=== PATIENT | male | born 1990 | race Caucasian/White ===

== ENCOUNTER 2018-03-24 17:56 | Emergency (ER) | payer SELFPAY ==
[2018-03-24] MEDS ORDERED: LORazepam 2 MG/ML VIAL ONE (18:07)
[2018-03-24] MEDS ORDERED: NA CHLORIDE 0.9% 2,000 ML ONE (18:07)
[2018-03-24 18:33] LABS: Absolute Lymphocytes (CBC) 1.4 K/uL (0.7-4.9); Absolute Monocytes 0.7 K/uL (0.1-1.3); Absolute Neutrophil 10.9 K/uL (1.8-8.0); Basophils % 0.3 % (0-1.3); Eosinophils % 0.8 % (0-4.4); Hematocrit 46.4 % (39.6-49.0); MCH 33.3 pg (27.0-35.0); MCV 97.5 fL (80-100); Monocytes % 5.2 % (3.3-12.3); RBC Red Blood Cell Count 4.76 M/uL (4.33-5.43)
[2018-03-24 18:42] LABS: Protime INR 0.99
[2018-03-24 18:48] LABS: Bicarbonate 23 mEq/L (21-31); Glucose Level 223 mg/dL (65-120); Potassium 3.5 mEq/L (3.6-5.0); Sodium Level 140 mEq/L (135-145)
[2018-03-24 18:54] LABS: ALT/SGPT 34 IU/L (10-60); AST/SGOT 32 IU/L (10-42); Albumin 4.9 g/dL (3.2-5.5); Alkaline Phosphatase 60 IU/L (42-121); BUN Blood Urea Nitrogen 15 mg/dL (6-20); Bilirubin Direct 0.1 mg/dL (0-0.2); Bilirubin Total 0.4 mg/dL (0.3-1.2); Creatine Phosphokinase 88 IU/L (22-269); Magnesium 1.6 mg/dL (1.8-2.5); Protein, Total 8.4 g/dL (6.0-8.3)
[2018-03-24 18:58] LABS: Alcohol Serum/Plasma < 10 mg/dl; Salicylates Level < 4.0 mg/dl (<30)
--- NOTE | 2018-03-24 19:19 | RAD REPORT ---
EXAM DESCRIPTION: CT - Head Brain Wo Cont - 03/24/2018 6:58 pm CLINICAL HISTORY: Headache COMPARISON: None. TECHNIQUE: Computed axial tomography of the head was obtained. IV contrast was not requested. All CT scans are performed using dose optimization technique as appropriate and may include automated exposure control or mA/KV adjustment according to patient size. FINDINGS: An intracranial bleed is not seen . The ventricles are normal in caliber. No extra-axial fluid collection is noted. Mild to moderate opacification ethmoid is seen. Mastoids are clear. IMPRESSION: No acute intracranial abnormality is seen. If patient's symptoms persist MRI of the bra in would be recommended.
--- NOTE | 2018-03-24 19:52 | RAD REPORT ---
EXAM DESCRIPTION: Ned Single View03/24/2018 6:54 pm CLINICAL HISTORY: cough COMPARISON: none FINDINGS: The lungs appear clear of acute infiltrate. The heart is normal size IMPRESSION: No acute abnormalities displayed
[2018-03-24 20:12] LABS: Urine Blood TRACE (NEG); Urine Glucose TRACE (NEG); Urine Protein 2+ (NEG); Urine Specific Gravity 1.025 (1.005-1.030)
[2018-03-24 20:30] LABS: Barbiturates NEGATIVE; Benzodiazepines NEGATIVE; Cocaine NEGATIVE; METHAMPHETAM NEGATIVE; Opiates NEGATIVE; Phencyclidine NEGATIVE; THC Cannibis NEGATIVE
[2018-03-24] MEDS ORDERED: MAGNESIUM OXIDE 400 MG TAB ONE (20:41)
--- NOTE | 2018-03-24 22:13 | ER ---
Nurse's Notes [facility] Name: Lj Ellsworth Age: 27 yrs Sex: Male : 1990 Arrival Date: 03/24/2018 Time: 17:58 Bed 3 Private MD: Diagnosis: Altered mental status, unspecified;Poisoning by and adverse effect of lysergide [LSD] Presentation: 03/24 17:59 Presenting complaint: EMS states: PD called to scene due to altered mental status. Pt jl7 was wondering around the [place] apartments talking incoherently. Pt is diaphoretic, tachycardic, BP is 120/60. Transition of care: patient was not received from another setting of care. Onset of symptoms was March 24, 2018. Initial Sepsis Screen: Does the patient meet any 2 criteria? No. Patient's initial sepsis screen is negative. Does the patient have a suspected source of infection? No. Patient's initial sepsis screen is negative. Care prior to arrival: None. 17:59 Method Of Arrival: EMS: [facility] 17:59 Acuity: RAMESH 2 jl7 Historical: - Allergies: 19:12 No Known Allergies; bp - Home Meds: 19:12 Unable to obtain [Active]; bp - PMHx: 19:12 Unable to obtain; bp - Immunization history:: Adult Immunizations up to date. - Social history:: Smoking status: unknown. Screenin:26 Abuse screen: Denies threats or abuse. Nutritional screening: No deficits noted. ae1 Tuberculosis screening: No symptoms or risk factors identified. Fall Risk None identified. Assessment: 18:15 General: Appears unkempt, Behavior is cooperative, agitated, restless. Pain: Denies ae1 pain. Neuro: Level of Consciousness is awake, alert, obeys commands, Oriented to person. Cardiovascular: Respiratory: Airway is patent Respiratory effort is even, unlabored, shallow, Respiratory pattern is regular, symmetrical. GI: Abdomen is flat, non-distended. : Patient is saturated in urine. EENT: Eyes Pupils are unequal, left pupil is dilated to 4mm and right pupil is dilated to 3 mm. Derm: Skin is diaphoretic, Skin is flushed, Skin temperature is hot. Musculoskeletal: No signs and/or symptoms reported regarding the musculoskeletal system. no visible signs of injury. 18:45 Reassessment: Patient appears less confused, and is able to communicate more clearly. ae1 Patient states he ingested 3 "tabs" of "acid" at about noon today. 19:00 Reassessment: RECD REPORT FROM HARMEET GRAYSON. 27YO WM P/W AMS S/P LSD INGESTION. BROUGHT BY bp PD FOR "ACTING STRANGE AT HIS APARTMENT COMPLEX". UOP PENDING. PT CURRENTLY AO4, CALM AND COOPERATIVE. NO RESTRAINTS IN PLACE. 21:00 Reassessment: REPEAT TROP DRAWN/SENT, RESULTS PENDING FOR DISPO. bp 22:26 Reassessment: PT D/C HOME AMBULATORY WITH FAMILY, DX WITH POLYSUBSTANCE ABUSE. bp Vital Signs: 17:59 BP 141 / 78; Pulse 113; Resp 20 S; Temp 100.6(A); Pulse Ox 98% on R/A; jl7 19:32 BP 115 / 68; Pulse 81; Resp 17; Temp 98(O); Pulse Ox 97% on R/A; Weight 83.91 kg (R); ae1 21:24 BP 109 / 75; Pulse 77; Resp 17; Pulse Ox 98% on R/A; mw2 22:08 BP 113 / 64; Pulse 74; Resp 16; Temp 98.3(O); Pulse Ox 100% on R/A; Pain 0/10; cc ED Course: 17:58 Patient arrived in ED. jl7 17:59 Arm band placed on right wrist. jl7 18:04 Silviano Greene MD is Attending Physician. [facility] 18:12 Wood Herrera, RENUKA is Primary Nurse. ae1 18:14 Triage completed. jl7 18:15 Initial lab(s) drawn, by pa, sent to lab. Inserted saline lock: 20 gauge in right jl7 antecubital area, using aseptic technique. Blood collected. 18:19 Bed in low position. ae1 18:34 Attending Physician role handed off by Silviano Greene MD tw4 18:34 Wilber Rao MD is Attending Physician. tw4 18:47 X-ray completed. Portable x-ray completed in exam room. Patient tolerated procedure kp1 well. 18:[address] via stretcher. 18:54 XRAY Chest (1 view) In Process Unspecified. EDMS 18:58 CT completed. Patient tolerated procedure well. Patient moved back from CT. 18:58 CT Head Brain wo Cont In Process Unspecified. EDAL 22:09 EKG done, by ED staff, reviewed by Wilber Rao MD. cc 22:26 No provider procedures requiring assistance completed. IV discontinued, intact, bp bleeding controlled, No redness/swelling at site. Pressure dressing applied. Administered Medications: 18:06 Drug: NS 0.9% 1000 ml Route: IV; Rate: 1 bolus; Site: right antecubital; ae1 22:28 Follow up: IV Status: Completed infusion; IV Intake: 1000ml bp 18:06 Drug: Ativan 1 mg Route: IVP; Site: right antecubital; ae1 19:57 Follow up: Response: Marked relief of symptoms bp 19:32 Drug: NS 0.9% 1000 ml Route: IV; Rate: 1 bolus; Site: right antecubital; ae1 22:27 Follow up: IV Status: Completed infusion; IV Intake: 1000ml bp 19:57 Not Given (Physician Discretion): Ativan 1 mg IVP once bp 20:43 Drug: Magnesium 400 mg Route: PO; bp 20:43 Follow up: Response: No adverse reaction bp Intake: 22:27 IV: 1000ml; Total: 1000ml. bp 22:28 IV: 1000ml; Total: 2000ml. bp Outcome: 22:12 Discharge ordered by . tw4 22:27 Discharged to home ambulatory, with family. bp 22:27 Condition: stable 22:27 Discharge instructions given to patient, Instructed on discharge instructions, follow up and referral plans. Demonstrated understanding of instructions, follow-up care. 22:28 Patient left the ED. bp Signatures: Dispatcher [employer] EDAL Silviano Greene MD MD cha Hagler, Ervin Vi Lopez Wood Herrera RN RN ae1 Harmeet Cameoj RN RN jl7 Eugenie Montes De Oca kp1 Sarmad Prado RN RN Wilber Shelton MD MD tw4 Patricia Bradshaw 2
--- NOTE | 2018-03-24 22:13 | EDPHYS ---
Physician Documentation [facility] Name: Lj Ellsworth Age: 27 yrs Sex: Male : 1990 Arrival Date: 03/24/2018 Time: 17:58 Bed 3 Private MD: ED Physician Wilber Rao HPI: 03/24 21:38 This 27 yrs old Male presents to ER via EMS with complaints of altered mental tw4 status. 21:38 The patient presents with agitation, confusion. Onset: The symptoms/episode tw4 began/occurred just prior to arrival. Possible causes: drug use, LSD. Associated signs and symptoms: The patient has no apparent associated signs or symptoms. Current symptoms: In the emergency department the patient's symptoms have resolved. Patient's baseline: Neuro: alert and fully oriented, Motor: no deficits, Ambulation: walks without assistance, Speech: normal. The patient has not experienced similar symptoms in the past. transported by EMS after pt was confused in front yard. Historical: - Allergies: 19:12 No Known Allergies; bp - Home Meds: 19:12 Unable to obtain [Active]; bp - PMHx: 19:12 Unable to obtain; bp - Immunization history:: Adult Immunizations up to date. - Social history:: Smoking status: unknown. ROS: 21:38 Constitutional: Negative for fever, chills, and weight loss, Cardiovascular: Negative tw4 for chest pain, palpitations, and edema, Respiratory: Negative for shortness of breath, cough, wheezing, and pleuritic chest pain, Abdomen/GI: Negative for abdominal pain, nausea, vomiting, diarrhea, and constipation, Back: Negative for injury and pain, MS/Extremity: Negative for injury and deformity, Skin: Negative for injury, rash, and discoloration. 21:38 Neuro: Positive for altered mental status, Negative for gait disturbance, headache, hearing loss, loss of consciousness. Exam: 21:38 Constitutional: This is a well developed, well nourished patient who is awake, alert, tw4 and in no acute distress. Head/Face: Normocephalic, atraumatic. Chest/axilla: Normal chest wall appearance and motion. Nontender with no deformity. No lesions are appreciated. Cardiovascular: Regular rate and rhythm with a normal S1 and S2. No gallops, murmurs, or rubs. Normal PMI, no JVD. No pulse deficits. Respiratory: Lungs have equal breath sounds bilaterally, clear to auscultation and percussion. No rales, rhonchi or wheezes noted. No increased work of breathing, no retractions or nasal flaring. Abdomen/GI: Soft, non-tender, with normal bowel sounds. No distension or tympany. No guarding or rebound. No evidence of tenderness throughout. Back: No spinal tenderness. No costovertebral tenderness. Full range of motion. MS/ Extremity: Pulses equal, no cyanosis. Neurovascular intact. Full, normal range of motion. Neuro: Awake and alert, GCS 15, oriented to person, place, time, and situation. Cranial nerves II-XII grossly intact. Motor strength 5/5 in all extremities. Sensory grossly intact. Cerebellar exam normal. Normal gait. Vital Signs: 17:59 BP 141 / 78; Pulse 113; Resp 20 S; Temp 100.6(A); Pulse Ox 98% on R/A; jl7 19:32 BP 115 / 68; Pulse 81; Resp 17; Temp 98(O); Pulse Ox 97% on R/A; Weight 83.91 kg (R); ae1 21:24 BP 109 / 75; Pulse 77; Resp 17; Pulse Ox 98% on R/A; mw2 22:08 BP 113 / 64; Pulse 74; Resp 16; Temp 98.3(O); Pulse Ox 100% on R/A; Pain 0/10; cc MDM: 18:04 Patient medically screened. carlos 03/25 00:33 Differential Diagnosis: CVA, electrolyte abnormality, volume depletion. Data reviewed: tw4 vital signs, nurses notes. Data interpreted: Pulse oximetry: Interpretation: normal. Counseling: I had a detailed discussion with the patient and/or guardian regarding: the historical points, exam findings, and any diagnostic results supporting the discharge/admit diagnosis, lab results. Special discussion: I discussed with the patient/guardian in detail that at this point there is no indication for admission to the hospital. It is understood, however, that if the symptoms persist or worsen the patient needs to return immediately for re-evaluation. ED course: pt's initial troponin was 0.1.... repeat after initial draw was 0.13. Pt has no CP, SOB or additional symptoms during stay in the ED and prior to arrival. Will have pt followup with PCP. Pt also counseled to seek help with drug use. 03/24 18:06 Order name: Basic Metabolic Panel; Complete Time: 20:11 [facility] 03/24 18:06 Order name: BNP; Complete Time: 20:11 [facility] 03/24 18:06 Order name: CBC with Diff; Complete Time: 20:11 [facility] 03/24 18:06 Order name: Ckmb; Complete Time: 20:11 [facility] 03/24 18:06 Order name: CPK; Complete Time: 20: [facility] 03/24 18:06 Order name: LFT's; Complete Time: 20: [facility] 03/24 18:06 Order name: Magnesium; Complete Time: 20: [facility] 03/24 18:06 Order name: PT-INR; Complete Time: 20: [facility] 03/24 18:06 Order name: Ptt, Activated; Complete Time: 20: [facility] 03/24 18:06 Order name: Troponin (emerg Dept Use Only); Complete Time: 20: [facility] 03/24 18:06 Order name: Acetaminophen; Complete Time: 20: [facility] 03/24 18:06 Order name: ETOH Level; Complete Time: 20: [facility] 03/24 18:06 Order name: Salicylate; Complete Time: 20: [facility] 03/24 18:06 Order name: Urine Drug Screen; Complete Time: 21:33 [facility] 03/24 18:06 Order name: XRAY Chest (1 view); Complete Time: 20:11 [facility] 03/24 18:06 Order name: EKG; Complete Time: 18:20 [facility] 03/24 18:06 Order name: Cardiac monitoring; Complete Time: 20:08 [facility] 03/24 18:06 Order name: EKG - Nurse/Tech; Complete Time: 19:58 [facility] 03/24 18:06 Order name: IV Saline Lock; Complete Time: 18:14 [facility] 03/24 18:06 Order name: Labs collected and sent; Complete Time: 19:02 [facility] 03/24 18:06 Order name: O2 Per Protocol; Complete Time: 18:14 [facility] 03/24 18:06 Order name: O2 Sat Monitoring; Complete Time: 18:14 [facility] 03/24 18:06 Order name: CT Head Brain wo Cont; Complete Time: 20:11 [facility] 03/24 20:10 Order name: Urine Dipstick--Ancillary (enter results); Complete Time: 20:39 cc 03/24 20:40 Order name: Troponin I; Complete Time: 21:58 tw4 03/24 18:06 Order name: Urine Dipstick-Ancillary (obtain specimen); Complete Time: 20:08 carlos Administered Medications: 03/24 18:06 Drug: NS 0.9% 1000 ml Route: IV; Rate: 1 bolus; Site: right antecubital; ae1 22:28 Follow up: IV Status: Completed infusion; IV Intake: 1000ml bp 18:06 Drug: Ativan 1 mg Route: IVP; Site: right antecubital; ae1 19:57 Follow up: Response: Marked relief of symptoms bp 19:32 Drug: NS 0.9% 1000 ml Route: IV; Rate: 1 bolus; Site: right antecubital; ae1 22:27 Follow up: IV Status: Completed infusion; IV Intake: 1000ml bp 19:57 Not Given (Physician Discretion): Ativan 1 mg IVP once bp 20:43 Drug: Magnesium 400 mg Route: PO; bp 20:43 Follow up: Response: No adverse reaction bp Disposition: 03/24/18 22:12 Discharged to Home. Impression: Altered mental status, unspecified, Poisoning by and adverse effect of lysergide [LSD]. - Condition is Stable. - Discharge Instructions: Confusion, Polysubstance Abuse, Altered Mental Status. - Medication Reconciliation Form, Thank You Letter, Antibiotic Education, Prescription Opioid Use form. - Follow up: Private Physician; When: As needed; Reason: Recheck today's complaints, Continuance of care, Re-evaluation by your physician. - Problem is new. - Symptoms have improved. Signatures: Dispatcher [employer] Silviano Epps MD MD cha Elliott, Andrea, RN RN ae1 Sarmad Prado RN RN bp Wilber Rao MD MD tw4 Corrections: (The following items were deleted from the chart) 22: 22:12 03/24/2018 22:12 Discharged to Home. Impression: Altered mental status, bp unspecified; Poisoning by and adverse effect of lysergide [LSD]. Condition is Stable. Forms are Medication Reconciliation Form, Thank You Letter, Antibiotic Education, Prescription Opioid Use. Follow up: Private Physician; When: As needed; Reason: Recheck today's complaints, Continuance of care, Re-evaluation by your physician. Problem is new. Symptoms have improved. tw4
--- NOTE | 2018-03-25 06:57 | EKG ---
Test Date: 2018-03-24 Test Time: 19:11:57 Perfumer: SIMON MEASUREMENT RESULTS: Intervals: Rate: 83 AK: 132 QRSD: 94 QT: 378 QTc: 444 [place]: P: 41 AK: 132 QRS: 70 T: 26 INTERPRETIVE STATEMENTS: Normal sinus rhythm Normal ECG No previous ECG available for comparison Electronically Signed On 03-25-18 06:57:26 CDT by Doe Thacker
--- NOTE | 2018-03-27 09:17 | EKG ---
Test Date: 2018-03-24 Test Time: 22:01:25 Cosmetician: EDMAR MEASUREMENT RESULTS: Intervals: Rate: 70 [place]: 120 QRSD: 102 QT: 392 QTc: 423 [place]: P: 36 [place]: 120 QRS: 65 T: 20 INTERPRETIVE STATEMENTS: Normal sinus rhythm Normal ECG Compared to ECG 03/24/2018 19:11:57 No significant changes Electronically Signed On 03-27-18 09:16:36 CDT by Bunny Mar
== END 2018-03-24 22:28 | disposition home or self-care (01) ==
LOC: ER 17:56
DX: T40.8X1A Poisoning by lysergide [LSD], accidental (unintentional), initial encounter (principal)
CPT/HCPCS: 36415; 70450; 71045; 80048; 80076; 80307; 80320; 80329; 81003; 82550; 82553; 82962; 83735; 83880; 84484; 85025; 85610; 85730; 93005; 96361; 96374; 99284; J7030

== ENCOUNTER 2019-03-22 17:37 | Emergency (ER) | payer SELFPAY ==
[2019-03-22 18:43] LABS: Urine Blood NEGATIVE (NEG); Urine Glucose NEGATIVE (NEG); Urine Protein 2+ (NEG); Urine pH 6.5 (5.0-7.0)
[2019-03-22] MEDS ORDERED: KETOROLAC 30 MG/ML INJ ONE (19:27)
--- NOTE | 2019-03-22 19:41 | RAD REPORT ---
EXAM DESCRIPTION: RAD - Chest Pa And Lat (2 Views) - 03/22/2019 7:27 pm CLINICAL HISTORY: Cough;Chest pain Chest pain. COMPARISON: Chest Single View dated 03/24/2018 FINDINGS: The lungs are clear. The heart is normal in size. No displaced fractures. IMPRESSION: No acute or concerning finding suspected.
--- NOTE | 2019-03-22 19:48 | ER ---
Nurse's Notes [facility] Name: Lj Ellsworth Age: 28 yrs Sex: Male : 1990 Arrival Date: 03/22/2019 Time: 17:38 Bed 13 Private MD: Diagnosis: Chest Wall Pain Presentation: 03/22 17:45 Presenting complaint: Patient states: i think i pulled a muscle on my chest coz when i ss move my arm and cough it hurts; i do have allergies today;. Transition of care: patient was not received from another setting of care. Onset of symptoms was March 22, 2019. Risk Assessment: Do you want to hurt yourself or someone else? Patient reports no desire to harm self or others. Initial Sepsis Screen: Does the patient meet any 2 criteria? No. Patient's initial sepsis screen is negative. Does the patient have a suspected source of infection? No. Patient's initial sepsis screen is negative. Care prior to arrival: None. 17:45 Method Of Arrival: Ambulatory ss 17:45 Acuity: RAMESH 3 ss Historical: - Allergies: 17:46 No Known Allergies; ss - PMHx: 17:46 None; ss - PSHx: 17:46 nosal surgery; testis; ss - Immunization history:: Adult Immunizations up to date. - Social history:: Smoking status: Patient uses tobacco products, smokes one-half pack cigarettes per day. - Ebola Screening: : Patient negative for fever greater than or equal to 101.5 degrees Fahrenheit, and additional compatible Ebola Virus Disease symptoms. Screenin:05 Abuse screen: Denies threats or abuse. Nutritional screening: No deficits noted. rb1 Tuberculosis screening: No symptoms or risk factors identified. Fall Risk None identified. Assessment: 18:05 General: Appears in no apparent distress. comfortable, Behavior is calm, cooperative, rb1 Denies fever. Pain: Complains of pain in left chest muscle Pain does not radiate. Pain currently is 8 out of 10 on a pain scale. Pain began Tuesday. Pt. reports picking up his friend while wrestling and body slamming him and he thinks he pulled his muscle. Neuro: Level of Consciousness is awake, alert, obeys commands, Oriented to person, place, time, situation. Cardiovascular: Capillary refill < 3 seconds is brisk in bilateral fingers. Respiratory: Airway is patent Respiratory effort is even, unlabored, Respiratory pattern is regular, symmetrical. GI: Reports nausea. : No signs and/or symptoms were reported regarding the genitourinary system. Derm: Skin is dry, Skin is normal, Skin temperature is warm. 19:17 General: Appears in no apparent distress. comfortable, Behavior is calm, cooperative. ak1 Pain: Complains of pain in chest. Neuro: No deficits noted. Cardiovascular: No deficits noted. Respiratory: No deficits noted. GI: No signs and/or symptoms were reported involving the gastrointestinal system. : No signs and/or symptoms were reported regarding the genitourinary system. EENT: No signs and/or symptoms were reported regarding the EENT system. Derm: No signs and/or symptoms reported regarding the dermatologic system. Musculoskeletal: Reports pain in chest after heavy lifting. Vital Signs: 17:46 BP 145 / 75; Pulse 97; Resp 18; Temp 98.2(TE); Pulse Ox 98% on R/A; Weight 85.73 kg; ss Height 6 ft. 0 in. (182.88 cm); Pain 8/10; 19:18 BP 130 / 80; Pulse 86; Resp 17; Pulse Ox 97% on R/A; ak1 20:14 BP 121 / 81; Pulse 88; Resp 18; Temp 98.2; Pulse Ox 97% on R/A; Pain 2/10; ak1 17:46 Body Mass Index 25.63 (85.73 kg, 182.88 cm) ED Course: 17:38 Patient arrived in ED. as 17:46 Triage completed. ss 17:48 Arm band placed on right wrist. ss 18:05 Patient has correct armband on for positive identification. Placed in gown. Bed in low rb1 position. Call light in reach. Side rails up X 1. bunch breaker machine operator on. Pulse ox on. NIBP on. 18:05 Patient maintains SpO2 saturation greater than 95% on room air. rb1 18:09 Bushra Mooney RN is Primary Nurse. rb1 18:26 Florin Cota PA is PHCP. jr8 18:26 Josiah Mcknight MD is Attending Physician. jr8 18:31 Urine Dipstick--Ancillary (enter results) Sent. kj1 19:00 Report given to RENUKA Hsu. rb1 19:19 No provider procedures requiring assistance completed. ak1 19:25 X-ray completed. Patient tolerated procedure well. Patient moved back from radiology. 19:26 XRAY Chest Pa And Lat (2 Views) In Process Unspecified. EDMS 19:35 Primary Nurse role handed off by Bushra Mooney, RN ak1 19:35 Aracelis Anderson, RN is Primary Nurse. ak1 20:13 Patient did not have IV access during this emergency room visit. ak1 Administered Medications: 19:17 Drug: TORadol - Ketorolac 15 mg Route: IM; Site: left deltoid; ak1 19:45 Follow up: Response: No adverse reaction ak1 20:14 Follow up: Response: No adverse reaction ak1 Outcome: 19:47 Discharge ordered by . jr8 20:13 Discharged to home ambulatory, with family. ak1 20:13 Condition: good 20:13 Discharge instructions given to patient, Instructed on discharge instructions, follow up and referral plans. no drinking with medication, no driving heavy equipment, medication usage, Demonstrated understanding of instructions, follow-up care, medications, Prescriptions given X 1. 20:15 Patient left the ED. ak1 Signatures: Dispatcher [employer] EDSD Keisha Ferrell Shelby, RN RN Florin Cota PA PA jr8 Krenek, Amber, RENUKA RN ak1 Adriana Brown Bushra Mooney, RN RN rb1 Ciera Heredia
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
--- NOTE | 2019-03-23 14:44 | EKG ---
Test Date: 2019-03-22 Test Time: 18:09:19 Industrial Relations Specialist: MING MEASUREMENT RESULTS: Intervals: Rate: 94 [place]: 120 QRSD: 86 QT: 334 QTc: 417 [place]: P: 43 [place]: 120 QRS: 54 T: 29 INTERPRETIVE STATEMENTS: Normal sinus rhythm Normal ECG Compared to ECG 03/24/2018 22:01:25 No significant changes Electronically Signed On 03-23-19 14:41:07 CDT by Doe Thacker
== END 2019-03-22 20:15 | disposition home or self-care (01) ==
LOC: ER 17:37
DX: R07.89 Other chest pain (principal); R05 Cough; F17.210 Nicotine dependence, cigarettes, uncomplicated
CPT/HCPCS: 71046; 81003; 93005; 96372; 99285

== ENCOUNTER 2021-01-25 17:16 | Emergency (ER) | payer OTHER ==
--- NOTE | 2021-01-25 18:30 | RAD REPORT ---
EXAM DESCRIPTION: CT - CTHCSPWOC - 01/25/2021 5:55 pm CLINICAL HISTORY: TRAUMA, fall from 10 foot height COMPARISON: No comparisons TECHNIQUE: Axial 5 mm thick images of the head were obtained. Axial 2 mm thick images of the cervic al spine were obtained with sagittal and coronal reconstruction images generated and reviewed. All CT scans are performed using dose optimization technique as appropriate and may include automated exposure control or mA/KV adjustment according to patient size. FINDINGS: No intracranial hemorrhage, mass, edema or acute intracranial finding. Ventricles are norm al No extra-axial fluid collections. Mastoid air cells are clear. Facial bones, orbits and sinuses ar e separately detailed. Cervical body height and alignment are normal. No disk space narrowing. No fracture or acute bony abn ormality. Central canal detail is inherently limited. No paraspinal mass or hematoma. IMPRESSION: No hemorrhage, edema or acute intracranial finding. Facial bones, orbits and sinuses are separately detailed. Negative CT cervical spine examination for acute or significant finding.
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
[2021-01-26 15:15] VITALS: BP 127/83; TEMP 97.2; O2SAT 98
== END 2021-01-25 18:58 | disposition home or self-care (01) ==
LOC: ER 17:16
DX: S00.11XA Contusion of right eyelid and periocular area, initial encounter (principal); W13.1XXA Fall from, out of or through bridge, initial encounter; Y93.89 Activity, other specified; Y92.89 Other specified places as the place of occurrence of the external cause; F17.210 Nicotine dependence, cigarettes, uncomplicated
CPT/HCPCS: 70450; 70486; 72125; 76377; 99284

== ENCOUNTER 2022-02-15 12:15 | Emergency (ER) | payer OTHER ==
[2022-02-15] MEDS ORDERED: KETOROLAC 30 MG/ML INJ ONE (13:06)
--- NOTE | 2022-02-15 13:30 | RAD REPORT ---
EXAM DESCRIPTION: RAD - Wrist Right 3 View - 02/15/2022 1:05 pm CLINICAL HISTORY: Right wrist pain status post injury FINDINGS: 5 millimeter bony density lies along the dorsal aspect of the wrist. This is suspicious fo r an acute avulsion fracture No dislocation
--- NOTE | 2022-02-15 14:10 | EDPHYS ---
Physician Documentation [facility] Name: Lj Ellsworth Age: 31 yrs Sex: Male : 1990 Arrival Date: 02/15/2022 Time: 12:18 Bed 9 Private MD: ED Physician Silverio Batista HPI: 02/15 12:25 This 31 yrs old Male presents to ER via Ambulatory with complaints of Wrist Injury. jmm 12:25 The patient or guardian reports injury, pain. Onset: The symptoms/episode jmm began/occurred acutely, just prior to arrival. Modifying factors: The symptoms are alleviated by nothing, the symptoms are aggravated by movement. Associated signs and symptoms: Pertinent positives: Swelling. This is a 31-year-old male no Rush conditions presents emerged part with complaints of right wrist pain and swelling which occurred after a fall on an outstretched hand. Patient denies other injury. Pain is worsened with range of motion of the wrist.. Historical: - Allergies: 12:41 No Known Allergies; ph - PMHx: 12:41 None; ph - Immunization history:: Adult Immunizations unknown. - Social history:: Smoking status: Patient reports the use of cigarette tobacco products, denies chronic smoking, but will smoke occasionally. ROS: 12:25 Constitutional: Negative for fever, chills, and weight loss, Cardiovascular: Negative jmm for chest pain, palpitations, and edema, Respiratory: Negative for shortness of breath, cough, wheezing, and pleuritic chest pain. 12:25 MS/extremity: Positive for injury or acute deformity, pain. 12:25 All other systems are negative. Exam: 12:25 Constitutional: This is a well developed, well nourished patient who is awake, alert, jmm and in no acute distress. Head/Face: atraumatic. Eyes: EOMI, no conjunctival erythema appreciated ENT: Moist Mucus Membranes Neck: Trachea midline, Supple Chest/axilla: Normal chest wall appearance and motion. Cardiovascular: Regular rate and rhythm. No edema appreciated Respiratory: Normal respirations, no respiratory distress appreciated Abdomen/GI: Non distended, soft Back: Normal ROM Skin: General appearance color normal 12:25 Musculoskeletal/extremity: Swelling appreciated to the right wrist, pain elicited on palpation of the distal ulnar region., Compartments are soft, full radial pulse, sensation is intact, neurovascular intact. 12:25 Skin: Appearance: Color: normal in color. 12:25 Neuro: Orientation: is normal, Mentation: is normal, Memory: is normal. 12:25 Psych: Behavior/mood is pleasant, cooperative. Vital Signs: 12:39 BP 110 / 66; Pulse 73; Resp 18; Temp 98.2; Pulse Ox 100% on R/A; Weight 83.91 kg; ph Height 6 ft. 0 in. (182.88 cm); 12:39 Body Mass Index 25.09 (83.91 kg, 182.88 cm) ph Procedures: 14:08 Splinting: Splint applied to right wrist using Sugar tong. applied by tech. Examined by bryant me, post splint application: neurovascular intact, 2+ distal pulses palpable, brisk capillary refill noted, Patient tolerated well. MDM: 12:26 Patient medically screened. [facility] 14:08 Data reviewed: vital signs, nurses notes. Counseling: I had a detailed discussion with bryant the patient and/or guardian regarding: the historical points, exam findings, and any diagnostic results supporting the discharge/admit diagnosis, radiology results, the need for outpatient follow up, to return to the emergency department if symptoms worsen or persist or if there are any questions or concerns that arise at home. ED course: Patient is neurovascular intact in the ED. Splint was placed. Patient advised to follow-up with orthopedics for further evaluation otherwise given strict return precautions. Patient understood agrees plan of care.. 02/15 12:25 Order name: Wrist Right 3 View XRAY; Complete Time: 13:32 [facility] 02/15 13:55 Order name: Sugar Tong Forearm Splint [facility] 02/15 13:55 Order name: Sling [facility] Administered Medications: 13:14 Drug: Ketorolac 30 mg Route: IM; Site: left deltoid; iw 13:30 Follow up: Response: No adverse reaction; Pain is decreased iw Disposition: 16:54 Co-signature as Attending Physician, Silverio Batista MD. rn Disposition Summary: 02/15/22 14:10 Discharge Ordered Location: Home [facility] Condition: Stable [facility] Diagnosis - Avulsion fracture of the right wrist, initial visit [facility] Followup: nichole - With: Devante Potts MD - When: 2 - 3 days - Reason: Recheck today's complaints, Continuance of care, Re-evaluation by your physician Followup: [facility] - With: Jose Carlos Castillo MD - When: 2 - 3 days - Reason: Recheck today's complaints, Continuance of care, Re-evaluation by your physician Discharge Instructions: - Discharge Summary Sheet [facility] - Wrist Fracture Treated With Immobilization [facility] Forms: - Medication Reconciliation Form [facility] - Thank You Letter [facility] - Antibiotic Education [facility] - Prescription Opioid Use [facility] Prescriptions: - Ibuprofen 800 mg Oral Tablet - take 1 tablet by ORAL route every 8 hours As needed take with food; 30 tablet; [facility] Refills: 0, Product Selection Permitted - orphenadrine citrate 100 mg Oral Tablet Sustained Release - take 1 tablet by ORAL route 2 times per day As needed; 20 tablet; Refills: 0, [facility] Product Selection Permitted Signatures: Dispatcher [employer] Neil Farmer PA PA jmm Williams, Irene, Silverio Salguero RN, MD MD rn Hall, Patricia, RN RN ph
--- NOTE | 2022-02-15 14:10 | ER ---
Nurse's Notes [facility] Name: Lj Ellsworth Age: 31 yrs Sex: Male : 1990 Arrival Date: 02/15/2022 Time: 12:18 Bed 9 Private MD: Diagnosis: Avulsion fracture of the right wrist, initial visit Presentation: 02/15 12:39 Chief complaint: Patient states: Slipped and fell last night, caught self w/ R hand, ph c/o R wrist pain. Coronavirus screen: Vaccine status: Patient reports being unvaccinated. Ebola Screen: No symptoms or risks identified at this time. Initial Sepsis Screen: Does the patient meet any 2 criteria? No. Patient's initial sepsis screen is negative. Does the patient have a suspected source of infection? No. Patient's initial sepsis screen is negative. Risk Assessment: Do you want to hurt yourself or someone else? Patient reports no desire to harm self or others. Onset of symptoms was February 15, 2022. 12:39 Method Of Arrival: Ambulatory ph 12:39 Acuity: RAMESH 4 ph Triage Assessment: 12:43 General: Appears in no apparent distress. Behavior is calm, cooperative. Pain: ph Complains of pain in right wrist. Musculoskeletal: Circulation, motion, and sensation intact. Historical: - Allergies: 12:41 No Known Allergies; ph - PMHx: 12:41 None; ph - Immunization history:: Adult Immunizations unknown. - Social history:: Smoking status: Patient reports the use of cigarette tobacco products, denies chronic smoking, but will smoke occasionally. Screenin:44 Abuse screen: Denies threats or abuse. Denies injuries from another. Nutritional ph screening: No deficits noted. Tuberculosis screening: No symptoms or risk factors identified. Fall Risk None identified. Assessment: 12:43 General: Appears in no apparent distress. comfortable, well groomed, Behavior is calm, ph cooperative, appropriate for age. Pain: Complains of pain in right wrist. Neuro: Level of Consciousness is awake, alert, obeys commands, Oriented to person, place, time, situation. Derm: Skin is intact, is healthy with good turgor, Skin is pink, warm \T\ dry. Musculoskeletal: Circulation, motion, and sensation intact. Swelling present in right wrist. Vital Signs: 12:39 BP 110 / 66; Pulse 73; Resp 18; Temp 98.2; Pulse Ox 100% on R/A; Weight 83.91 kg; ph Height 6 ft. 0 in. (182.88 cm); 12:39 Body Mass Index 25.09 (83.91 kg, 182.88 cm) ph ED Course: 12:18 Patient arrived in ED. mr 12:19 Neil Paulino PA is PHCP. jmm 12:19 Silverio Batista MD is Attending Physician. jmm 12:41 Triage completed. ph 12:41 Arm band placed on Patient placed in waiting room, Patient notified of wait time. X-ray ph ordered. 12:44 Patient has correct armband on for positive identification. Call light in reach. ph 12:53 Kristy Wright, RN is Primary Nurse. iw 13:06 Wrist Right 3 View XRAY In Process Unspecified. EDMS 14:09 Devante Potts MD is Referral Physician. jmm 14:09 Jose Carlos Castillo MD is Referral Physician. [facility] 14:27 No provider procedures requiring assistance completed. Patient did not have IV access iw during this emergency room visit. Administered Medications: 13:14 Drug: Ketorolac 30 mg Route: IM; Site: left deltoid; iw 13:30 Follow up: Response: No adverse reaction; Pain is decreased iw Outcome: 14:10 Discharge ordered by . jmm 14:27 Discharged to home ambulatory. iw 14:27 Condition: good 14:27 Discharge instructions given to patient, Instructed on discharge instructions, follow iw up and referral plans. medication usage, Demonstrated understanding of instructions, follow-up care, medications, Prescriptions given X 2. 14:28 Patient left the ED. iw Signatures: Dispatcher [employer] EDOR Neil Paulino PA PA Maame Marte mr Kristy Wright, RN RN iw Alicia Jeffries RN RN ph
[2022-02-15 15:04] VITALS: BP 110/66; TEMP 98.2; O2SAT 100
== END 2022-02-15 14:28 | disposition home or self-care (01) ==
LOC: ER 12:15
PROC: 2W3CX1Z Immobilization of Right Lower Arm using Splint (ICD-10-PCS; principal; 2022-02-15)
DX: S62.101A Fracture of unspecified carpal bone, right wrist, initial encounter for closed fracture (principal); W19.XXXA Unspecified fall, initial encounter; F17.210 Nicotine dependence, cigarettes, uncomplicated
CPT/HCPCS: 96372; 99283

== ENCOUNTER 2022-08-03 10:35 | Emergency (ER) | payer OTHER ==
--- NOTE | 2022-08-03 11:58 | ER ---
Nurse's Notes [facility] Name: Lj Ellsworth Age: 31 yrs Sex: Male : 1990 Arrival Date: 08/03/2022 Time: 10:37 Bed DIS2 Private MD: Diagnosis: Streptococcal pharyngitis Presentation: 08/03 10:43 Chief complaint: Patient states: i think i have a sinus infection, congestion worse in 5 the mornings, allergy pills x2 weeks without help. Coronavirus screen: Vaccine status: Patient reports being unvaccinated. Client denies travel out of the [place] in the last 14 days. Client presents with at least one sign or symptom that may indicate coronavirus-19. Standard/surgical mask placed on the client. Ebola Screen: Patient negative for fever greater than or equal to 101.5 degrees Fahrenheit, and additional compatible Ebola Virus Disease symptoms Patient denies exposure to infectious person. Patient denies travel to an Ebola-affected area in the 21 days before illness onset. Initial Sepsis Screen: Does the patient meet any 2 criteria? No. Patient's initial sepsis screen is negative. Does the patient have a suspected source of infection? No. Patient's initial sepsis screen is negative. Risk Assessment: Do you want to hurt yourself or someone else? Patient reports no desire to harm self or others. Onset of symptoms was July 20, 2022. 10:43 Method Of Arrival: Ambulatory [facility] 10:43 Acuity: RAMESH 4 jh5 Triage Assessment: 10:45 General: Appears in no apparent distress. comfortable, slender, well groomed, Behavior [facility] is calm, cooperative, appropriate for age. Pain: Denies pain. Historical: - Allergies: 10:45 No Known Allergies; [facility] - PMHx: 10:45 None; [facility] - PSHx: 10:45 nose fx surgery; [facility] - Immunization history:: Adult Immunizations up to date. - Social history:: Smoking status: Patient reports the use of cigarette tobacco products, denies chronic smoking, but will smoke occasionally. Screenin:06 Abuse screen: Denies threats or abuse. Denies injuries from another. Nutritional ss screening: No deficits noted. Tuberculosis screening: Never had TB. Fall Risk None identified. Assessment: 12:06 General: Appears in no apparent distress. comfortable, Behavior is calm, cooperative, ss Denies fever, chills. Pain: Denies pain. Neuro: Level of Consciousness is awake, alert, obeys commands. Respiratory: Airway is patent Respiratory effort is even, unlabored, Respiratory pattern is regular, symmetrical, Denies cough, shortness of breath. EENT: Oral mucosa is moist. EENT: Reports nasal congestion nasal discharge. Derm: Skin is pink, warm \T\ dry. normal. Vital Signs: 10:43 BP 129 / 86; Pulse 71; Resp 18; Temp 98.6; Pulse Ox 100% ; Weight 88.45 kg; Height 6 [facility] ft. 0 in. (182.88 cm); Pain 0/10; 10:43 Body Mass Index 26.45 (88.45 kg, 182.88 cm) [facility] ED Course: 10:37 Patient arrived in ED. 4 10:38 Neil Paulino PA is PHCP. [facility] 10:38 Mary Cartagena MD is Attending Physician. [facility] 10:45 Triage completed. [facility] 10:45 Arm band placed on right wrist. [facility] 11:59 Migdalia Olivas, RENUKA is Primary Nurse. 12:06 Patient has correct armband on for positive identification. 12:06 No provider procedures requiring assistance completed. Patient did not have IV access ss during this emergency room visit. Administered Medications: 12:03 Drug: Decadron (dexamethasone) 10 mg Route: IM; Site: left deltoid; 12:08 Follow up: Response: Medication administered at discharge. Medication: 12:06 VIS not applicable for this client. Outcome: 11:58 Discharge ordered by . [facility] 12:06 Discharge instructions given to patient, Instructed on discharge instructions, follow ss up and referral plans. medication usage, Demonstrated understanding of instructions, follow-up care, medications, Prescriptions given X 1. 12:07 Discharged to home ambulatory. 12:07 Condition: good 12:10 Patient left the ED. Signatures: Neil Paulino PA PA jmm Smirch, Shelby, RN RN Bell Asher rg4 Elle Kendall RN RN [facility]
--- NOTE | 2022-08-03 11:58 | EDPHYS ---
Physician Documentation [facility] Name: Lj Ellsworth Age: 31 yrs Sex: Male : 1990 Arrival Date: 08/03/2022 Time: 10:37 Bed DIS2 Private MD: ED Physician Mary Cartagena HPI: 08/03 11:54 This 31 yrs old Male presents to ER via Ambulatory with complaints of Sinus Congestion. jmm 11:54 Onset: The symptoms/episode began/occurred gradually, 2 week(s) ago. Modifying factors: jmm The symptoms are alleviated by nothing, the symptoms are aggravated by nothing. Associated signs and symptoms: Pertinent positives: sore throat. Patient complains of sinus pressure, sore throat beginning approx 2 weeks. Unrelieved with otc medication. . Historical: - Allergies: 10:45 No Known Allergies; jh5 - PMHx: 10:45 None; jh5 - PSHx: 10:45 nose fx surgery; 5 - Immunization history:: Adult Immunizations up to date. - Social history:: Smoking status: Patient reports the use of cigarette tobacco products, denies chronic smoking, but will smoke occasionally. ROS: 11:55 Neck: Negative for injury, pain, and swelling, Cardiovascular: Negative for chest pain, jmm palpitations, and edema, Respiratory: Negative for shortness of breath, cough, wheezing, and pleuritic chest pain, Abdomen/GI: Negative for abdominal pain, nausea, vomiting, diarrhea, and constipation, Back: Negative for injury and pain. 11:55 Constitutional: Positive for fatigue. 11:55 ENT: Positive for sinus congestion, sore throat. 11:55 All other systems are negative. Exam: 11:55 Constitutional: This is a well developed, well nourished patient who is awake, alert, jmm and in no acute distress. Head/Face: atraumatic. Eyes: EOMI, no conjunctival erythema appreciated 11:55 Chest/axilla: Normal chest wall appearance and motion. Cardiovascular: Regular rate and rhythm. No edema appreciated Respiratory: Normal respirations, no respiratory distress appreciated Abdomen/GI: Non distended Back: Normal ROM Skin: General appearance color normal MS/ Extremity: Moves all extremities, no obvious deformities appreciated, no edema noted to the lower extremities Neuro: Awake and alert Psych: Behavior is normal, Mood is normal, Patient is cooperative and pleasant 11:55 ENT: Posterior pharynx: erythema, that is mild. Vital Signs: 10:43 BP 129 / 86; Pulse 71; Resp 18; Temp 98.6; Pulse Ox 100% ; Weight 88.45 kg; Height 6 5 ft. 0 in. (182.88 cm); Pain 0/10; 10:43 Body Mass Index 26.45 (88.45 kg, 182.88 cm) 5 MDM: 10:59 Patient medically screened. [facility] 11:56 Data reviewed: vital signs, nurses notes. Counseling: I had a detailed discussion with [facility] the patient and/or guardian regarding: the historical points, exam findings, and any diagnostic results supporting the discharge/admit diagnosis, the need for outpatient follow up, to return to the emergency department if symptoms worsen or persist or if there are any questions or concerns that arise at home. ED course: Patient is alert and non toxic in appearance in the ED. Patient advised to follow up with pcp and otherwise given strict return precautions. patient understood and agrees with the plan of care. . 08/03 10:38 Order name: SARS-COV-2 RT PCR (Document "Date of Onset" if Symptomatic); Complete Time: [facility] 12:04 08/03 10:38 Order name: Influenza Screen (a \\T\\ B); Complete Time: 11:58 [facility] 08/03 10:38 Order name: Strep; Complete Time: 11:58 [facility] Administered Medications: 12:03 Drug: Decadron (dexamethasone) 10 mg Route: IM; Site: left deltoid; 12:08 Follow up: Response: Medication administered at discharge. Disposition Summary: 08/03/22 11:58 Discharge Ordered Location: Home [facility] Condition: Stable [facility] Diagnosis - Streptococcal pharyngitis [facility] Followup: [facility] - With: Private Physician - When: 2 - 3 days - Reason: Recheck today's complaints, Continuance of care, Re-evaluation by your physician Discharge Instructions: - Discharge Summary Sheet [facility] - Sinusitis, Adult [facility] - Strep Throat, Adult [facility] Forms: - Medication Reconciliation Form [facility] - Thank You Letter [facility] - Antibiotic Education [facility] - Prescription Opioid Use [facility] Prescriptions: - Augmentin 875-125 mg Oral Tablet - take 1 tablet by ORAL route every 12 hours for 10 days; 20 tablet; Refills: 0, jmm Product Selection Permitted Signatures: Dispatcher [employer] Neil Farmer PA PA jmm Smirch, Shelby RN RN ss Elle Kendall RN RN jh5
[2022-08-03] MEDS ORDERED: dexAMETHasone 10 MG/ML VIAL ONE (12:11)
[2022-08-04 15:34] VITALS: BP 129/86; TEMP 98.6; O2SAT 100
== END 2022-08-03 12:10 | disposition home or self-care (01) ==
LOC: ER 10:35
DX: J02.0 Streptococcal pharyngitis (principal); Z20.822 Contact with and (suspected) exposure to COVID-19
CPT/HCPCS: 87081; 87804 ×2; U0003; J1100; 96372; 99283

== ENCOUNTER 2022-10-14 10:13 | Emergency (ER) | payer OTHER ==
[2022-10-14 11:23] LABS: SARS-COV-2 RT PCR NEGATIVE (NEGATIVE)
--- NOTE | 2022-10-14 11:58 | RAD REPORT ---
EXAM DESCRIPTION: Ned Single View10/14/2022 11:03 am CLINICAL HISTORY: cough COMPARISON: 2019 FINDINGS: The lungs appear clear of acute infiltrate. The heart is normal size IMPRESSION: No acute abnormalities displayed
--- NOTE | 2022-10-14 12:15 | ER ---
Nurse's Notes [facility] Name: Lj Ellsworth Age: 31 yrs Sex: Male : 1990 Arrival Date: 10/14/2022 Time: 10:25 Bed IW1 Private MD: Diagnosis: Other acute sinusitis Presentation: 10/14 10:27 Chief complaint: Patient states: cough, fever, sinus pain X 1 week. N/V this morning. ld1 Coronavirus screen: At this time, the client does not indicate any symptoms associated with coronavirus-19. Ebola Screen: No symptoms or risks identified at this time. Initial Sepsis Screen: Does the patient meet any 2 criteria? No. Patient's initial sepsis screen is negative. Does the patient have a suspected source of infection? No. Patient's initial sepsis screen is negative. Risk Assessment: Do you want to hurt yourself or someone else? Patient reports no desire to harm self or others. Onset of symptoms was October 14, 2022. 10:27 Method Of Arrival: Ambulatory ld1 10:27 Acuity: RAMESH 4 ld1 Triage Assessment: 10:28 General: Appears in no apparent distress. comfortable, Behavior is calm, cooperative, ld1 agitated. Pain: Denies pain. EENT: No signs and/or symptoms were reported regarding the EENT system. Neuro: Level of Consciousness is awake, alert, obeys commands, Oriented to person, place, time, situation. Cardiovascular: Capillary refill < 3 seconds Patient's skin is warm and dry. Respiratory: Airway is patent Respiratory effort is even, unlabored. GI: Abdomen is flat, non-distended. : No signs and/or symptoms were reported regarding the genitourinary system. Derm: No signs and/or symptoms reported regarding the dermatologic system. Musculoskeletal: No signs and/or symptoms reported regarding the musculoskeletal system. Historical: - Allergies: 10:28 No Known Allergies; ld1 - Home Meds: 10: None [Active]; ld1 - PMHx: 10:28 None; ld1 - PSHx: 10:28 nose fx surgery; ld1 - Immunization history:: Adult Immunizations up to date, Client reports receiving the 2nd dose of the Covid vaccine. - Social history:: Smoking status: Patient reports the use of cigarette tobacco products, smokes one-half pack cigarettes per day, Patient uses alcohol, on a daily basis. Screenin:18 Abuse screen: Denies threats or abuse. Denies injuries from another. Nutritional ld1 screening: No deficits noted. Tuberculosis screening: No symptoms or risk factors identified. Fall Risk None identified. Assessment: 12:18 Reassessment: See triage assessment. ld1 Vital Signs: 10:27 BP 139 / 80; Pulse 76; Resp 18; Temp 98.1(O); Pulse Ox 99% on R/A; Weight 88.45 kg; ld1 Height 5 ft. 10 in. (177.80 cm); Pain 0/10; 10:27 Body Mass Index 27.98 (88.45 kg, 177.80 cm) ld1 ED Course: 10:25 Patient arrived in ED. as 10:28 Triage completed. ld1 10:28 Brook Baptiste FNP is [facility]. [facility] 10:28 Silviano Greene MD is Attending Physician. [facility] 10:28 Arm band placed on right wrist. ld1 10:30 COVID-19/FLU A+B Sent. ld1 11:00 XRAY Chest (1 view) In Process Unspecified. EDMS 12:18 Patient has correct armband on for positive identification. Call light in reach. Pulse ld1 ox on. NIBP on. Door closed. 12:18 No provider procedures requiring assistance completed. Patient did not have IV access ld1 during this emergency room visit. Administered Medications: No medications were administered Medication: 12:18 VIS not applicable for this client. ld1 Outcome: 12:13 Discharge ordered by . [facility] 12:18 Discharged to home ambulatory. ld1 12:18 Condition: stable 12:18 Discharge instructions given to patient, Instructed on discharge instructions, follow up and referral plans. medication usage, Demonstrated understanding of instructions, follow-up care, medications, Prescriptions given X 2. 12:18 Patient left the ED. ld1 Signatures: Dispatcher [employer] Keisha Lucas Lauren, RN RN ld1 Brook Baptiste FNP [employer] [facility]
--- NOTE | 2022-10-14 12:15 | EDPHYS ---
Physician Documentation [facility] Name: Lj Ellsworth Age: 31 yrs Sex: Male : 1990 Arrival Date: 10/14/2022 Time: 10:25 Bed IW1 Private MD: JUN Physician Silviano Greene HPI: 10/14 10:30 This 31 yrs old Male presents to ER via Ambulatory with complaints of Cough, fever, jh7 sinus pain, diarrhea. 10:30 The patient or guardian reports cough, that is intermittent. Onset: The jh7 symptoms/episode began/occurred 8 day(s) ago. Associated signs and symptoms: Pertinent positives: fever, Pertinent negatives: chest pain. Historical: - Allergies: 10:28 No Known Allergies; ld1 - Home Meds: 10:28 None [Active]; ld1 - PMHx: 10:28 None; ld1 - PSHx: 10:28 nose fx surgery; ld1 - Immunization history:: Adult Immunizations up to date, Client reports receiving the 2nd dose of the Covid vaccine. - Social history:: Smoking status: Patient reports the use of cigarette tobacco products, smokes one-half pack cigarettes per day, Patient uses alcohol, on a daily basis. ROS: 10:30 Eyes: Negative for injury, pain, redness, and discharge, Neck: Negative for injury, jh7 pain, and swelling, Cardiovascular: Negative for chest pain, palpitations, and edema, Abdomen/GI: Negative for abdominal pain, nausea, vomiting, diarrhea, and constipation, Back: Negative for injury and pain, MS/Extremity: Negative for injury and deformity, Skin: Negative for injury, rash, and discoloration, Neuro: Negative for headache, weakness, numbness, tingling, and seizure. 10:30 Constitutional: Positive for body aches, fever. 10:30 ENT: Positive for sinus congestion, sinus pain. 10:30 Respiratory: Positive for cough, Negative for shortness of breath. 10:30 All other systems are negative. Exam: 10:30 Constitutional: This is a well developed, well nourished patient who is awake, alert, jh7 and in no acute distress. Head/Face: Normocephalic, atraumatic. Eyes: Pupils equal round and reactive to light, extra-ocular motions intact. Lids and lashes normal. Conjunctiva and sclera are non-icteric and not injected. Cornea within normal limits. Periorbital areas with no swelling, redness, or edema. Neck: Trachea midline, no thyromegaly or masses palpated, and no cervical lymphadenopathy. Supple, full range of motion without nuchal rigidity, or vertebral point tenderness. No Meningismus. Cardiovascular: Regular rate and rhythm with a normal S1 and S2. No gallops, murmurs, or rubs. Normal PMI, no JVD. No pulse deficits. Respiratory: Lungs have equal breath sounds bilaterally, clear to auscultation and percussion. No rales, rhonchi or wheezes noted. No increased work of breathing, no retractions or nasal flaring. Abdomen/GI: Soft, non-tender, with normal bowel sounds. No distension or tympany. No guarding or rebound. No evidence of tenderness throughout. Back: No spinal tenderness. No costovertebral tenderness. Full range of motion. Skin: Warm, dry with normal turgor. Normal color with no rashes, no lesions, and no evidence of cellulitis. MS/ Extremity: Pulses equal, no cyanosis. Neurovascular intact. Full, normal range of motion. Neuro: Awake and alert, GCS 15, oriented to person, place, time, and situation. Motor strength 5/5 in all extremities. Sensory grossly intact. Normal gait. 10:30 ENT: TM's: are normal, Posterior pharynx: Postnasal drainage, Maxillary sinus tenderness noted upon palpation. Vital Signs: 10:27 BP 139 / 80; Pulse 76; Resp 18; Temp 98.1(O); Pulse Ox 99% on R/A; Weight 88.45 kg; ld1 Height 5 ft. 10 in. (177.80 cm); Pain 0/10; 10:27 Body Mass Index 27.98 (88.45 kg, 177.80 cm) ld1 MDM: 10:28 Patient medically screened. [facility] 12:20 Differential diagnosis: flu, URI, Acute sinusitis. Data reviewed: vital signs, nurses [facility] notes, radiologic studies, plain films. Data interpreted: Pulse oximetry: is 99 %. Interpretation: normal. Counseling: I had a detailed discussion with the patient and/or guardian regarding: the historical points, exam findings, and any diagnostic results supporting the discharge/admit diagnosis, to return to the emergency department if symptoms worsen or persist or if there are any questions or concerns that arise at home. 10/14 10:27 Order name: COVID-19/FLU A+B; Complete Time: 11:28 ld1 10/14 10:36 Order name: XRAY Chest (1 view); Complete Time: 12:13 [facility] Administered Medications: No medications were administered Disposition Summary: 10/14/22 12:13 Discharge Ordered Location: Home [facility] Problem: new [facility] Symptoms: are unchanged [facility] Condition: Stable [facility] Diagnosis - Other acute sinusitis [facility] Followup: [facility] - With: Private Physician - When: 2 - 3 days - Reason: Recheck today's complaints Discharge Instructions: - Discharge Summary Sheet [facility] - Sinusitis, Adult [facility] Forms: - Medication Reconciliation Form [facility] - Thank You Letter [facility] - Antibiotic Education [facility] Prescriptions: - Bromfed DM 2-30-10 mg/5 mL Oral syrup - take 10 milliliter by ORAL route every 4-6 hours As needed; 240 milliliter; [facility] Refills: 0, Product Selection Permitted - Amoxicillin 875 mg Oral Tablet - take 1 tablet by ORAL route every 12 hours for 10 days; 20 tablet; Refills: 0, [facility] Product Selection Permitted Addendum: 10/17/2022 07:55 Co-signature as Attending Physician, Silviano Greene MD I agree with the assessment and c little plan of care. Signatures: Dispatcher [employer] Silviano Epps MD MD cha Dibbern, Lauren, RN RN ld1 Brook Baptiste FNP [place] [id number]
[2022-10-14 12:56] VITALS: BP 139/80; TEMP 98.1; O2SAT 99
== END 2022-10-14 12:18 | disposition home or self-care (01) ==
LOC: ER 10:13
DX: J01.80 Other acute sinusitis (principal); F17.210 Nicotine dependence, cigarettes, uncomplicated; Z20.822 Contact with and (suspected) exposure to COVID-19
CPT/HCPCS: 0240U; 71045; 99284

== ENCOUNTER 2023-04-09 08:40 | Emergency (ER) | payer OTHER ==
[2023-04-09] MEDS ORDERED: TETANUS & DIPHTHERIA TOX,ADULT 0.5 ML VIAL ONE (10:03)
--- NOTE | 2023-04-09 10:09 | EDPHYS ---
Physician Documentation [facility] Name: Lj Ellsworth Age: 32 yrs Sex: Male : 1990 Arrival Date: 04/09/2023 Time: 08:40 Bed 12 Private MD: ED Physician Silviano Greene HPI: 04/09 08:48 This 32 yrs old Male presents to ER via Ambulatory with complaints of Finger Injury. jmm 08:48 The patient or guardian reports injury, a laceration. The complaints affect the right jmm middle fingernail. Onset: The symptoms/episode began/occurred acutely. Modifying factors: The symptoms are alleviated by nothing, the symptoms are aggravated by nothing. This is a 32 year old male with no chronic medical conditions that presents to the ED with complaints of laceration to his right 3rd finger which occurred approx 12 hours ago. Not sure on tetanus immunization. . Historical: - Allergies: 08:48 No Known Allergies; hb - Home Meds: 08:48 None [Active]; hb - PMHx: 08:48 None; hb - PSHx: 08:48 nose fx surgery; hb - Immunization history:: Last tetanus immunization: unknown. - Social history:: Smoking status: Patient denies any tobacco usage or history of. ROS: 08:48 Constitutional: Negative for fever, chills, and weight loss, Cardiovascular: Negative jmm for chest pain, palpitations, and edema, Respiratory: Negative for shortness of breath, cough, wheezing, and pleuritic chest pain. 08:48 MS/extremity: Positive for laceration. 08:48 All other systems are negative. Exam: 08:48 Constitutional: This is a well developed, well nourished patient who is awake, alert, jmm and in no acute distress. Head/Face: atraumatic. Eyes: EOMI, no conjunctival erythema appreciated ENT: Moist Mucus Membranes Neck: Trachea midline, Supple Chest/axilla: Normal chest wall appearance and motion. Cardiovascular: Regular rate and rhythm. No edema appreciated Respiratory: Normal respirations, no respiratory distress appreciated Abdomen/GI: Non distended Back: Normal ROM 08:48 Skin: 1 cm laceration noted to the right 3rd finger, goes into the nail plate. 08:48 Neuro: Orientation: is normal, Mentation: is normal, Memory: is normal. 08:48 Psych: Behavior/mood is pleasant, cooperative. Vital Signs: 08:47 BP 127 / 80; Pulse 83; Resp 16; Temp 98; Pulse Ox 100% ; Weight 95.25 kg; Height 5 ft. hb 11 in. ; Pain 4/10; 08:47 Body Mass Index 29.29 (95.25 kg, 180.34 cm) hb 08:47 Pain Scale: Adult hb MDM: 08:48 Patient medically screened. [facility] 11:25 Data reviewed: vital signs, nurses notes. I considered the following discharge jm prescriptions or medication management in the emergency department Medications were administered in the Emergency Department. See MAR. Counseling: I had a detailed discussion with the patient and/or guardian regarding: the historical points, exam findings, and any diagnostic results supporting the discharge/admit diagnosis, the need for outpatient follow up, to return to the emergency department if symptoms worsen or persist or if there are any questions or concerns that arise at home. 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 Exp: 03/19/2024. hb Lot #: [id number]. } Route: IM; Site: right deltoid; 10:19 Follow up: Response: No adverse reaction hb Disposition Summary: 04/09/23 10:09 Discharge Ordered Location: Home [facility] Condition: Stable [facility] Diagnosis - Finger Laceration with involvement of the nail bed/nail plate, initial visit, no jmm foreign body Followup: [facility] - With: Dragan Ruiz MD - When: 10 - 14 days - Reason: Recheck today's complaints, Continuance of care, Re-evaluation by your physician Discharge Instructions: - Discharge Summary Sheet [facility] - Laceration Care, Adult [facility] Forms: - Medication Reconciliation Form [facility] - Thank You Letter [facility] - Antibiotic Education [facility] - Prescription Opioid Use [facility] Prescriptions: - Doxycycline Hyclate 100 mg Oral Tablet - take 1 tablet by ORAL route every 12 hours; 20 tablet; Refills: 0, Product jm Selection Permitted Signatures: Silviano Greene MD MD cha Mickail, Joel, PA PA jmm Baxter, Heather, RN RN
--- NOTE | 2023-04-09 10:09 | ER ---
Nurse's Notes [facility] Name: Lj Ellsworth Age: 32 yrs Sex: Male : 1990 Arrival Date: 04/09/2023 Time: 08:40 Bed 12 Private MD: Diagnosis: Finger Laceration with involvement of the nail bed/nail plate, initial visit, no foreign body Presentation: 04/09 08:47 Chief complaint: Right middle finger laceration from mandolin last night at approx 9pm. hb Bleeding controlled. Coronavirus screen: At this time, the client does not indicate any symptoms associated with coronavirus-19. Ebola Screen: No symptoms or risks identified at this time. Initial Sepsis Screen: Does the patient meet any 2 criteria? No. Patient's initial sepsis screen is negative. Does the patient have a suspected source of infection? No. Patient's initial sepsis screen is negative. Risk Assessment: Do you want to hurt yourself or someone else? Patient reports no desire to harm self or others. Onset of symptoms was April 08, 2023. 08:47 Method Of Arrival: Ambulatory hb 08:47 Acuity: RAMESH 4 hb Triage Assessment: 08:48 General: Appears in no apparent distress. Behavior is calm, cooperative. Pain: Pain hb currently is 4 out of 10 on a pain scale. Neuro: Level of Consciousness is awake, alert, obeys commands, Oriented to person, place, time, situation. Cardiovascular: Patient's skin is warm and dry. Respiratory: Respiratory effort is even, unlabored, Respiratory pattern is regular, symmetrical. Historical: - Allergies: 08:48 No Known Allergies; hb - Home Meds: 08:48 None [Active]; hb - PMHx: 08:48 None; hb - PSHx: 08:48 nose fx surgery; hb - Immunization history:: Last tetanus immunization: unknown. - Social history:: Smoking status: Patient denies any tobacco usage or history of. Screenin:14 [facility] ED Fall Risk Assessment (Adult) Score/Fall Risk Level 0 - 2 = Low Risk hb Oriented to surroundings, Maintained a safe environment. Abuse screen: Denies threats or abuse. Denies injuries from another. Nutritional screening: No deficits noted. Tuberculosis screening: No symptoms or risk factors identified. Assessment: 09:14 General: See triage assessment. hb 10:07 Reassessment: Patient appears in no apparent distress at this time. Patient and/or hb family updated on plan of care and expected duration. Pain level reassessed. Patient is alert, oriented x 3, equal unlabored respirations, skin warm/dry/pink. Vital Signs: 08:47 BP 127 / 80; Pulse 83; Resp 16; Temp 98; Pulse Ox 100% ; Weight 95.25 kg; Height 5 ft. hb 11 in. ; Pain 4/10; 08:47 Body Mass Index 29.29 (95.25 kg, 180.34 cm) hb 08:47 Pain Scale: Adult hb ED Course: 08:42 Patient arrived in ED. ts1 08:45 Neil Paulino PA is PHCP. bryant 08:45 Silviano Greene MD is Attending Physician. bryant 08:47 Maura Lujan, RN is Primary Nurse. hb 08:48 Triage completed. hb 08:48 Arm band placed on. hb 09:14 Patient has correct armband on for positive identification. hb 10:07 No provider procedures requiring assistance completed. Patient did not have IV access hb during this emergency room visit. 10:08 Dragan Ruiz MD is Referral Physician. [facility] Administered Medications: 10:02 Drug: Tetanus Toxoid,Adsorbed IM 0.5 ml {Antenna Rigger: [facility] [employer] [place]. Exp: 03/19/2024. hb Lot #: [id number]. } Route: IM; Site: right deltoid; 10:19 Follow up: Response: No adverse reaction hb Medication: 10:19 Vaccine Information Statement (VIS) provided today. Questions and/or concerns hb addressed. VIS edition date: April 09, 2023. Outcome: 10:09 Discharge ordered by . [facility] 10:19 Discharged to home ambulatory. hb 10:19 Condition: stable 10:19 Discharge instructions given to patient, Instructed on discharge instructions, follow up and referral plans. medication usage, wound care, Demonstrated understanding of instructions, follow-up care, medications, Prescriptions given X 1. 10:19 Patient left the ED. hb Signatures: Neil Paulino PA PA jmm Baxter, Heather, RN RN Farida Pagan PAS PAS ts1
[2023-04-09 10:24] VITALS: BP 127/80; TEMP 98; O2SAT 100
== END 2023-04-09 10:19 | disposition home or self-care (01) ==
LOC: ER 08:40
DX: S61.312A Laceration without foreign body of right middle finger with damage to nail, initial encounter (principal); Z23 Encounter for immunization
CPT/HCPCS: 90471; 90714; 99284

== ENCOUNTER 2023-06-23 17:14 | Emergency (ER) | payer OTHER ==
[2023-06-23] MEDS ORDERED: BENZONATATE 100 MG CAP PO ONE (17:52)
[2023-06-23] MEDS ORDERED: IBUPROFEN 400 MG TAB ONE (17:52)
[2023-06-23] MEDS ORDERED: ONDANSETRON 4 MG (ODT) TAB ONE (17:52)
--- NOTE | 2023-06-23 19:36 | ER ---
Nurse's Notes [facility] Name: Lj Ellsworth Age: 32 yrs Sex: Male : 1990 Arrival Date: 06/23/2023 Time: 17:14 Bed 11 Private MD: Diagnosis: Influenza due to unidentified influenza virus with other respiratory manifestations Presentation: 06/23 17:23 Chief complaint: Patient states: "Since Tuesday, I've had body aches, cough, sore mb9 throat, fatigue, and nausea.". Coronavirus screen: Vaccine status: Patient reports being unvaccinated. Ebola Screen: No symptoms or risks identified at this time. Initial Sepsis Screen: Does the patient meet any 2 criteria? No. Patient's initial sepsis screen is negative. Does the patient have a suspected source of infection? No. Patient's initial sepsis screen is negative. Risk Assessment: Do you want to hurt yourself or someone else? Patient reports no desire to harm self or others. Onset of symptoms was June 23, 2023. 17:23 Method Of Arrival: Ambulatory 9 17:23 Acuity: RAMESH 4 mb9 Triage Assessment: 17:24 General: Appears in no apparent distress. Behavior is calm, cooperative. Pain: mb9 Complains of pain in enitre body. Neuro: Level of Consciousness is awake, alert, obeys commands. Cardiovascular: Patient's skin is warm and dry. Respiratory: Reports cough that is Airway is patent. GI: Reports nausea. Derm: Skin is pink, warm \\T\\ dry. Musculoskeletal: Range of motion: intact in all extremities. Historical: - Allergies: 17:24 No Known Allergies; mb9 - Home Meds: 17:24 None [Active]; mb9 - PMHx: 17:24 None; mb9 - PSHx: 17:24 nose fx surgery; mb9 - Immunization history:: Adult Immunizations up to date. - Social history:: Smoking status: Patient reports the use of cigarette tobacco products, denies chronic smoking, but will smoke occasionally. Screenin:09 [facility] ED Fall Risk Assessment (Adult) Score/Fall Risk Level 0 - 2 = Low Risk nj1 Oriented to surroundings, Maintained a safe environment, Hourly rounding (assess needs \\T\\ fall precautionary measures) done. Abuse screen: Denies threats or abuse. Denies injuries from another. Nutritional screening: No deficits noted. Tuberculosis screening: No symptoms or risk factors identified. Assessment: 18:09 Reassessment: See triage assessment. nj1 20:00 Reassessment: Patient appears in no apparent distress at this time. Patient and/or nj1 family updated on plan of care and expected duration. Pain level reassessed. Patient is alert, oriented x 3, equal unlabored respirations, skin warm/dry/pink. Patient does not wish to wait for this nurse to obtain new vital signs. Patient states feeling better. Patient states symptoms have improved. Vital Signs: 17:23 BP 134 / 75; Pulse 84; Resp 18; Temp 100(O); Pulse Ox 100% on R/A; Weight 89.36 kg; mb9 Height 5 ft. 11 in. ; 17:23 Body Mass Index 27.48 (89.36 kg, 180.34 cm) mb9 ED Course: 17:18 Patient arrived in ED. im 17:18 Silviano Fisher PA is PHCP. cp 17:18 Silverio Batista MD is Attending Physician. cp 17:20 Sarmad Prado, RENUKA is Primary Nurse. bp 17:23 Arm band placed on. mb9 17:24 Triage completed. mb9 18:09 Provided Education on: Fall precautions, call light. nj1 18:09 Patient has correct armband on for positive identification. Bed in low position. Call nj1 light in reach. 20:00 No provider procedures requiring assistance completed. Patient did not have IV access nj1 during this emergency room visit. Administered Medications: 17:47 Drug: Ondansetron PO 4 mg Route: PO; mb9 20:05 Follow up: Response: No adverse reaction nj1 17:47 Drug: Ibuprofen PO 800 mg Route: PO; mb9 20:05 Follow up: Response: No adverse reaction nj1 17:47 Drug: Tessalon Perle PO 200 mg Route: PO; mb9 20:05 Follow up: Response: No adverse reaction nj1 Medication: 20:07 VIS not applicable for this client. nj1 Outcome: 19:36 Discharge ordered by . cp 20:00 Discharged to home ambulatory. nj1 20:00 Condition: stable 20:00 Discharge instructions given to patient, Instructed on discharge instructions, follow up and referral plans. medication usage, Demonstrated understanding of instructions, follow-up care, medications. 20:00 Patient left the ED. nj1 Signatures: Silviano Fisher PA PA cp Peltier, Brian, RN RN Maame Sullivan RN RN mb9 Pearl Treviño RN RN nj1 [place] James Corrections: (The following items were deleted from the chart) 20:05 20:00 Reassessment: Patient appears in no apparent distress at this time. Patient nj1 and/or family updated on plan of care and expected duration. Pain level reassessed. Patient is alert, oriented x 3, equal unlabored respirations, skin warm/dry/pink. Patient states feeling better. Patient states symptoms have improved. nj1 20:07 20:06 Patient left the ED. nj1 nj1
--- NOTE | 2023-06-23 19:36 | EDPHYS ---
Physician Documentation [facility] Name: Lj Ellsworth Age: 32 yrs Sex: Male : 1990 Arrival Date: 06/23/2023 Time: 17:14 Bed 11 Private MD: ED Physician Silverio Batista HPI: 06/23 17:50 This 32 yrs old Male presents to ER via Ambulatory with complaints of Flu Symptoms. cp 17:50 The patient or guardian reports cough, flu symptoms, body aches, nausea, fever. cp 17:50 Onset: The symptoms/episode began/occurred 2 day(s) ago. Associated signs and symptoms: cp Pertinent negatives: chest pain, diarrhea, vomiting, abdominal pain. Severity of symptoms: in the emergency department the symptoms are unchanged despite home interventions. Historical: - Allergies: 17:24 No Known Allergies; mb9 - Home Meds: 17:24 None [Active]; mb9 - PMHx: 17:24 None; mb9 - PSHx: 17:24 nose fx surgery; mb9 - Immunization history:: Adult Immunizations up to date. - Social history:: Smoking status: Patient reports the use of cigarette tobacco products, denies chronic smoking, but will smoke occasionally. ROS: 17:55 Eyes: Negative for injury, pain, redness, and discharge. cp 17:55 Constitutional: Positive for body aches, Negative for poor PO intake. 17:55 ENT: Positive for sore throat, Negative for drainage from ear(s), ear pain, difficulty swallowing, difficulty handling secretions. 17:55 Respiratory: Positive for cough, Negative for shortness of breath, wheezing. 17:55 Abdomen/GI: Positive for nausea, Negative for abdominal pain, vomiting, diarrhea, constipation. 17:55 Skin: Negative for rash. 17:55 Neuro: Negative for altered mental status, dizziness, weakness. 17:55 All other systems are negative. Exam: 18:00 Constitutional: The patient appears in no acute distress, alert, awake, cp non-diaphoretic, non-toxic, well developed, well nourished. 18:00 Head/Face: Normocephalic, atraumatic. cp 18:00 Eyes: Periorbital structures: appear normal, Conjunctiva: normal, no exudate, no injection, Sclera: no appreciated abnormality, Lids and lashes: appear normal, bilaterally. 18:00 ENT: External ear(s): are unremarkable, Ear canal(s): are normal, clear, TM's: dullness, bilaterally, Nose: is normal, Mouth: Lips: moist, Oral mucosa: pink and intact, moist, Posterior pharynx: is normal, airway is patent, no erythema, no exudate, Voice: is normal. 18:00 Neck: ROM/movement: is normal, is supple, without pain, no range of motions limitations, no meningismus. 18:00 Chest/axilla: Inspection: normal, Palpation: crepitus, is not appreciated, tenderness, cp is not appreciated. 18:00 Cardiovascular: Rate: tachycardic, Rhythm: regular. cp 18:00 Respiratory: the patient does not display signs of respiratory distress, Respirations: normal, no use of accessory muscles, no retractions, labored breathing, is not present, Breath sounds: are clear throughout, no decreased breath sounds, no stridor, no wheezing. 18:00 Abdomen/GI: Inspection: abdomen appears normal, Bowel sounds: active, all quadrants, Palpation: abdomen is soft and non-tender, in all quadrants. Vital Signs: 17:23 BP 134 / 75; Pulse 84; Resp 18; Temp 100(O); Pulse Ox 100% on R/A; Weight 89.36 kg; mb9 Height 5 ft. 11 in. ; 17:23 Body Mass Index 27.48 (89.36 kg, 180.34 cm) mb9 MDM: 17:20 Patient medically screened. cp 18:00 Differential diagnosis: bronchitis, flu, strep, COVID-19. 19:35 Data reviewed: vital signs, nurses notes, lab test result(s). 19:35 I considered the following discharge prescriptions or medication management in the emergency department Medications were administered in the Emergency Department. See MAR. Counseling: I had a detailed discussion with the patient and/or guardian regarding: the historical points, exam findings, and any diagnostic results supporting the discharge/admit diagnosis, lab results, to return to the emergency department if symptoms worsen or persist or if there are any questions or concerns that arise at home. Response to treatment: the patient's symptoms have mildly improved after treatment, and as a result, I will discharge patient. 06/23 17:26 Order name: COVID-19 SARS RT PCR 06/23 18:07 Order name: SARS-COV-2 RT PCR; Complete Time: 18:50 EDMS 06/23 18:50 Interpretation: Results reviewed. 06/23 18:28 Order name: Influenza Screen (A ; Complete Time: 19:22 EDMS 06/23 18:28 Order name: Group A Streptococcus Rapid Sc; Complete Time: 19:22 EDMS 06/23 19:12 Order name: Throat Culture EDMS Administered Medications: 17:47 Drug: Ondansetron PO 4 mg Route: PO; mb9 20:05 Follow up: Response: No adverse reaction nj1 17:47 Drug: Ibuprofen PO 800 mg Route: PO; mb9 20:05 Follow up: Response: No adverse reaction nj1 17:47 Drug: Tessalon Perle PO 200 mg Route: PO; mb9 20:05 Follow up: Response: No adverse reaction nj1 Disposition: 20:50 Co-signature as Attending Physician, Silverio Batista MD I reviewed the patient's care rn provided by the Advanced Practice Provider and agree with the diagnosis and treatment plan. Disposition Summary: 06/23/23 19:36 Discharge Ordered Location: Home cp Problem: new cp Symptoms: have improved cp Condition: Stable cp Diagnosis - Influenza due to unidentified influenza virus with other respiratory manifestations cp Followup: cp - With: Private Physician - When: 1 - 2 days - Reason: Worsening of condition Discharge Instructions: - Discharge Summary Sheet cp - Influenza, Adult cp Forms: - Medication Reconciliation Form cp - Thank You Letter cp - Antibiotic Education cp - Prescription Opioid Use cp - Patient Portal Instructions cp Prescriptions: - Ibuprofen 800 mg Oral Tablet - take 1 tablet by ORAL route every 8 hours As needed take with food; 30 tablet; cp Refills: 0, Product Selection Permitted - Zofran 4 mg Oral Tablet - take 1 tablet by ORAL route every 12 hours As needed; 20 tablet; Refills: 0, cp Product Selection Permitted Signatures: Dispatcher [employer] EDSilverio Medina MD MD rn Page, Corey, PA PA cp Breneman, Mary Beth RN RN mb9 Pearl Treviño RN nj1
[2023-06-23 20:19] VITALS: BP 134/75; TEMP 100; O2SAT 100
== END 2023-06-23 20:06 | disposition home or self-care (01) ==
LOC: ER 17:14
DX: J11.1 Influenza due to unidentified influenza virus with other respiratory manifestations (principal); Z20.822 Contact with and (suspected) exposure to COVID-19; F17.210 Nicotine dependence, cigarettes, uncomplicated
CPT/HCPCS: 87070; 87081; 87635; 87804 ×2; 99283; Q0162

== ENCOUNTER 2024-12-25 12:32 | Emergency (ER) | payer OTHER ==
--- OUTSIDE RECORDS SUMMARY | 2024-12-25 12:34 | XMS REPORT | Continuity of Care Document ---
Author Name Unknown Address [address] [place] [address]. [address] [place] [address] [facility] thconnect Address [address] [facility]. [address] [place] [address] Care Team Providers Care Pattern Mechanic Name Role Phone SISSON_Tamra Attending Clinician Unavailable JERRY_C Admitting Clinician Unavailable Payers Payer Name Policy Type Policy Number Effective Date Expirati on Date Source [facility] [id number] Social History Smoking Status Start Date Stop Date Source Heavy Tobacco Smoker [facility] Medications Ordered Medication Name Filled Medication Name Start Date Stop Date Current Medication? Ordering Clinician Indication Dosage Frequency Signature (SIG) Comments Components Source albuterol sulfate HFA 90 mcg/actuati on aerosol inhaler Inhale 2 puffs every 4 hours by inhalation route as needed. albuterol sulfate HFA 90 mcg/actuati on aerosol inhaler Inhale 2 puffs every 4 hours by inhalation route as needed. No 2puff(s ) Q4H albuterol sulfate HFA 90 mcg/actuat ion aerosol inhaler Inhale 2 puffs every 4 hours by inhalation route as needed. [facility] montelukast 10 mg tablet Take 1 tablet every day by oral route for 90 days. montelukast 10 mg tablet Take 1 tablet every day by oral route for 90 days. No 1 Q1D montelukas t 10 mg tablet Take 1 tablet every day by oral route for 90 days. [facility] prednisone 20 mg tablet Take 1 tablet twice a day by oral route for 5 days. prednisone 20 mg tablet Take 1 tablet twice a day by oral route for 5 days. No 1 BID prednisone 20 mg tablet Take 1 tablet twice a day by oral route for 5 days. [facility] Zithromax Z-Remy 250 mg tablet TAKE 2 TABLETS (500 MG) BY ORAL ROUTE ONCE DAILY FOR 1 DAY THEN 1 TABLET (250 MG) BY ORAL ROUTE ONCE DAILY FOR 4 DAYS Zithromax Z-Remy 250 mg tablet TAKE 2 TABLETS (500 MG) BY ORAL ROUTE ONCE DAILY FOR 1 DAY THEN 1 TABLET (250 MG) BY ORAL ROUTE ONCE DAILY FOR 4 DAYS No Zithromax Z-Remy 250 mg tablet TAKE 2 TABLETS (500 MG) BY ORAL ROUTE ONCE DAILY FOR 1 DAY THEN 1 TABLET (250 MG) BY ORAL ROUTE ONCE DAILY FOR 4 DAYS [facility] Vital Signs Vital Name Observation Time Observation Value Comments S ource Body Weight 2023-08-24 00:00:00 2869 [oz_av] [facility] BP Systolic 2023-08-24 00:00:00 120 mm[Hg] [facility] BMI (Body Mass Index) 2023-08-24 00:00:00 25 kg/m2 [facility] Height 2023-08-24 00:00:00 71 [in_i] [facility] BP Diastolic 2023-08-24 00:00:00 78 mm[Hg] [facility] Procedures Procedure Date / Time Performed Performing Clinicia n Source XR, chest, 2 view 2023-08-24 00:00:00 [facility] Testicular Ablation [facility] Procedure on Nose [facility] Plan of Care Planned Activity Planned Date Details Comments Source Diagnostic Test Pending 2023-08-24 00:00:00 CMP, serum or plasma [code = CMP, serum or plasma] [facility] Diagnostic Test Pending 2023-08-24 00:00:00 CBC w/ auto diff [code = CBC w/ auto diff] [facility] Diagnostic Test Pending 2023-08-24 00:00:00 lipid panel, serum [code = lipid panel, serum] [facility] Diagnostic Test Pending 2023-08-24 00:00:00 TSH + free T4, serum [code = TSH + free T4, serum] [facility] Diagnostic Test Pending 2023-08-24 00:00:00 vitamin D, 25-hydroxy, total, serum [code = vitamin D, 25-hydroxy, total, serum] [facility] Diagnostic Test Pending 2023-08-24 00:00:00 HbA1c (hemoglobin A1c), blood [code = HbA1c (hemoglobin A1c), blood] [facility] Diagnostic Test Pending 2023-08-24 00:00:00 vitamin B12 + folate, serum or blood [code = vitamin B12 + folate, serum or blood] [facility] Diagnostic Test Pending 2023-08-24 00:00:00 testosterone, free + total, serum [code = testosterone, free + total, serum] [facility] Diagnostic Test Pending 2023-08-24 00:00:00 estradiol, serum [code = estradiol, serum] [facility] Encounters Start Date/Time End Date/Time Encounter Type Admission Type Attending Clinicians Care Facility Care Department Encounter ID Source 2023-11-11 00:00:00 2023-11-11 00:00:00 Outpatient SISSON_C [facility] [id number] [place] [facility] 2023-10-07 00:00:00 2023-10-07 00:00:00 Outpatient SISSON_C [facility] [id number] [place] [facility] 2023-09-03 00:00:00 2023-09-03 00:00:00 Outpatient SISSON_C [facility] [id number] [place] [facility] 2023-08-31 00:00:00 2023-08-31 00:00:00 Outpatient SISSON_C [facility] [id number] [place] [facility] 2023-08-24 00:00:00 2023-08-24 00:00:00 Outpatient SISSON_C [facility] [id number] [place] [facility] 2023-08-24 00:00:00 2023-08-24 00:00:00 Outpatient SISSON_C [facility] [id number] [place] [facility] 2023-08-24 00:00:00 2023-08-24 00:00:00 Malka Martins, MSN, MORPHOLOGY TEACHER, WORK TICKET DISTRIBUTOR-C: [address], [address] [place] [address] , Ph. [facility], Malka Martins, MSN, WORK TICKET DISTRIBUTOR-C [id number] [facility] 2023-07-26 00:00:00 2023-07-26 00:00:00 Outpatient MARCO [facility] [id number] [facility]
[2024-12-25] MEDS ORDERED: LIDOCAINE 1% 20 ML MDV ONE (13:13)
--- NOTE | 2024-12-25 13:35 | ER ---
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 Coronavirus screen: Vaccine status: Patient reports being unvaccinated. Ebola Screen: No symptoms or risks identified at this time. Complicating Factors: There are no complicating factors for this patient. Initial Sepsis Screen: Does the patient meet any 2 criteria? No. Patient's initial sepsis screen is negative. Does the patient have a suspected source of infection? No. Patient's initial sepsis screen is negative. Risk Assessment: Do you want to hurt yourself or someone else? Patient reports no desire to harm self or others. Onset of symptoms was December 25, 2024 at 12:00. 12:47 Method Of Arrival: Ambulatory [facility] 12:47 Acuity: RAMESH 4 hi1 Triage Assessment: 12:48 Injury Description: Laceration sustained to palmar aspect of distal phalanx of right me1 thumb. Historical: - Allergies: 12:48 No Known Allergies; me1 - Home Meds: 12:48 None [Active]; me1 - PMHx: 12:48 None; me1 - PSHx: 12:48 nose fx surgery; me1 - Immunization history:: Adult Immunizations up to date, Last tetanus immunization: up to date. - Infectious Disease History:: Denies. - Social history:: Smoking status: Reported history of juuling and/or vaping. Screenin:19 [facility] ED Fall Risk Assessment (Adult) History of falling in the last 3 months, cm10 including since admission No falls in past 3 months (0 pts) Confusion or Disorientation No (0 pts) Intoxicated or Sedated No (0 pts) Impaired Gait No (0 pts) Mobility Assist Device Used No (0 pt) Altered Elimination No (0 pt) Score/Fall Risk Level 0 - 2 = Low Risk Oriented to surroundings, Maintained a safe environment, Hourly rounding (assess needs \T\ fall precautionary measures) done. Abuse screen: Denies threats or abuse. Denies injuries from another. Nutritional screening: No deficits noted. Tuberculosis screening: No symptoms or risk factors identified. Assessment: 13:18 General: Appears in no apparent distress. comfortable, Behavior is calm, cooperative. cm10 Pain: Complains of pain in palmar aspect of distal phalanx of right thumb Pain does not radiate. Pain currently is 4 out of 10 on a pain scale. Neuro: No deficits noted. Level of Consciousness is awake, alert, obeys commands, Oriented to person, place, time, situation, Appropriate for age. Respiratory: No deficits noted. Airway is patent Respiratory effort is even, unlabored, Respiratory pattern is regular, symmetrical. Musculoskeletal: Range of motion: intact in all extremities. Injury Description: Laceration sustained to palmar aspect of distal phalanx of right thumb is clean, 0.5 to 2.5 cm long, not bleeding. Vital Signs: 12:47 BP 128 / 75; Pulse 80; Resp 17; Temp 98.4; Pulse Ox 95% ; Weight 88.45 kg; Height 5 ft. me1 11 in. ; Pain 4/10; 13:51 BP 125 / 82; Pulse 71; Resp 14; Pulse Ox 96% on R/A; cm10 12:47 Body Mass Index 27.20 (88.45 kg, 180.34 cm) me1 12:47 Pain Scale: Adult me1 ED Course: 12:35 Patient arrived in ED. al6 12:48 Triage completed. me1 12:48 Arm band placed on Patient placed in an exam room. me1 12:56 [facility]C [facility] 12:56 Silverio Batista MD is Attending Physician. kb 13:00 Isi Ferrell, RENUKA is Primary Nurse. cm10 13:19 Patient has correct armband on for positive identification. Bed in low position. Call cm10 light in reach. 13:19 Assist provider with laceration repair on palmar aspect of distal phalanx of right cm10 thumb that was 2.5 cm. or less using sutures. Set up tray. Performed by Aisha HERRERA Dressed with 4X4s, Kerlix, Neosporin, Patient tolerated well. Patient did not have IV access during this emergency room visit. 13:52 Provided Education on: Follow-up care. cm10 Administered Medications: 13:20 Drug: Lidocaine Infiltration (1 %) 1 vials 5 ml Infiltration once; to bedside {Note: cm10 Given by provider.} Volume: 5 ml; Route: Infiltration; Medication: 13:20 VIS not applicable for this client. cm10 Outcome: 13:35 Discharge ordered by MD. garrett 13:52 Discharged to home ambulatory, cm10 13:52 Condition: stable 13:52 Discharge instructions given to patient, Instructed on discharge instructions, follow up and referral plans. wound care, Demonstrated understanding of instructions, follow-up care, wound care, 13:53 Patient left the ED. cm10 Signatures: Aisha Heredia, SUMIC INFORMATION ENGINEER-Isi Irwin RN RN cm10 Rima Sosa, RN RN me1 Beckie Mercado6 Corrections: (The following items were deleted from the chart) 12:55 12:48 Immunization history: Adult Immunizations unknown, me1 me1 13:52 13:19 Assist provider with laceration repair on palmar aspect of distal phalanx of cm10 right thumb that was 2.5 cm. or less using sutures. Set up tray. Performed by Aisha KATZ-C Patient tolerated well. cm10
--- NOTE | 2024-12-25 13:36 | EDPHYS ---
Physician Documentation [facility] Name: Lj Ellsworth Age: 34 yrs Sex: Male : 1990 Arrival Date: 12/25/2024 Time: 12:32 Bed 17 Private MD: ED Physician Silverio Batista HPI: 12/25 12:59 This 34 yrs old Male presents to ER via Ambulatory with complaints of Laceration To kb Hand - finger. 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 Denies any other injuries. Full ROM of finger. Historical: - Allergies: 12:48 No Known Allergies; me1 - Home Meds: 12:48 None [Active]; me1 - PMHx: 12:48 None; me1 - PSHx: 12:48 nose fx surgery; me1 - Immunization history:: Adult Immunizations up to date, Last tetanus immunization: up to date. - Infectious Disease History:: Denies. - Social history:: Smoking status: Reported history of juuling and/or vaping. ROS: 12:59 Constitutional: As per HPI kb Exam: 12:59 Constitutional: This is a well developed, well nourished patient who is awake, alert, kb and in no acute distress. Head/Face: Normocephalic, atraumatic. ENT: Moist Mucous membranes Cardiovascular: Regular rate Respiratory: Respirations even and unlabored. No increased work of breathing. Talking in full sentences MS/ Extremity: Pulses equal, no cyanosis. Neurovascular intact. Full, normal range of motion. Neuro: Awake and alert, GCS 15, oriented to person, place, time, and situation. 12:59 Skin: injury, laceration(s), the wound is approximately 2.5 cm(s), of the palmar aspect of distal phalanx of right thumb, that can be described as clean, no foreign body, irregular, without bleeding, Vital Signs: 12:47 BP 128 / 75; Pulse 80; Resp 17; Temp 98.4; Pulse Ox 95% ; Weight 88.45 kg; Height 5 ft. me1 11 in. ; Pain 4/10; 13:51 BP 125 / 82; Pulse 71; Resp 14; Pulse Ox 96% on R/A; cm10 12:47 Body Mass Index 27.20 (88.45 kg, 180.34 cm) me1 12:47 Pain Scale: Adult me1 Laceration: 13:33 Wound Repair of 2.5cm ( 1.0in ) subcutaneous laceration to palmar aspect of distal kb phalanx of right thumb. Irregularly shaped.. Skin/tissue flap noted.. Distal neuro/vascular/tendon intact. Anesthesia: Local anesthetic administered with 2 mls of 1% lidocaine. Wound prep: Extensive cleansing with betadine by me, Wound irrigation with saline by me. Skin closed with 2 5-0 Prolene using simple sutures and sterile technique. Patient tolerated well. MDM: 12:56 Medical Screening Exam initiated kb 13:00 Differential diagnosis: superficial laceration, tendon injury, vascular injury. Data kb reviewed: vital signs, nurses notes. 13:34 Test considered but Not performed: X-ray: hand xray considered but laceration is kb superficial, pt has full rom of digit. Counseling: I had a detailed discussion with the patient and/or guardian regarding the historical points, exam findings, and any diagnostic results supporting the discharge/admit diagnosis, the need for outpatient follow up, a family practitioner, to return to the emergency department if symptoms worsen or persist or if there are any questions or concerns that arise at home. 13:34 I considered the following discharge prescriptions or medication management in the emergency department I discussed and recommended Over The Counter medications, Antibiotics: At this time antibiotics are not recommended. 12/25 12:58 Order name: Dressing - Wound; Complete Time: 13:51 kb 12/25 12:58 Order name: Gloves, Sterile: size 6.0; Complete Time: 13:15 kb 12/25 12:58 Order name: Prolene, Sutures: 5.0; Complete Time: 13:15 kb 12/25 12:58 Order name: Setup Suture Tray; Complete Time: 13:15 kb Administered Medications: 13:20 Drug: Lidocaine Infiltration (1 %) 1 vials 5 ml Infiltration once; to bedside {Note: cm10 Given by provider.} Volume: 5 ml; Route: Infiltration; Disposition: 19:21 Co-signature as Attending Physician, Silverio Batista MD I reviewed the patient's care rn provided by the Advanced Practice Provider and agree with the diagnosis and treatment plan. Disposition Summary: 12/25/24 13:35 Discharge Ordered Notes: Have sutures removed in 10 days.Keep clean and dry
Location: Home kb Condition: Stable kb Diagnosis - Laceration without foreign body of right thumb with damage to nail kb Followup: kb - With: Emergency Department - When: As needed - Reason: Worsening of condition Followup: kb - With: Private Physician - When: 2 - 3 days - Reason: Recheck today's complaints, Continuance of care, Re-evaluation by your physician Discharge Instructions: - Discharge Summary Sheet kb - Laceration Care, Adult, [id number] kb Forms: - Medication Reconciliation Form kb - Antibiotic Education kb - Prescription Opioid Use kb - Patient Portal Instructions kb - Leadership Thank You Letter kb Signatures: Aisha Heredia, UNLOADING CHECKER-C UNLOADING CHECKER-Ckb Silverio Batista MD MD rn Isi Ferrell RN RN cm10 Rima Sosa RN RN me1 Corrections: (The following items were deleted from the chart) 12:55 12:48 Immunization history: Adult Immunizations unknown, me1 me1
[2024-12-25 16:05] VITALS: TEMP 98.4
[2024-12-25 16:06] VITALS: BP 125/82; O2SAT 96
== END 2024-12-25 13:53 | disposition home or self-care (01) ==
LOC: ER 12:32
DX: S61.011A Laceration without foreign body of right thumb without damage to nail, initial encounter (principal)
CPT/HCPCS: 99283; 12041; J2003